=== PATIENT | male | born 1960 | race American Indian/Alaskan Native ===

== ENCOUNTER 2020-01-04 12:07 | Emergency (ER) | payer SELFPAY ==
[2020-01-04 12:25] VITALS: BP 139/83
[2020-01-04] MEDS ORDERED: LIDOCAINE 2%/EPINEPHRINE 1:200,000 VIAL (20 ML) INFILTRATI ONE (12:37)
[2020-01-04] MEDS ORDERED: HYDROcodone/ACETAMINOPHEN 10-325MG TAB PO ONE (12:37)
--- NOTE | 2020-01-04 12:46 | Emergency Department Report ---
ED Laceration [facility] - HPI Chief Complaint: Wound/Laceration Stated Complaint: LEFT LEG CUT Time Seen by Provider: 01/04/20 12:30 Occurred When: Today Location: Lower Extremity Severity: moderate Tetanus Status: Not up to Date Laceration Symptoms: Yes Pain, No Foreign Body Sensation, No Numbness, No Weakness ED Review of Systems ROS: Stated complaint: LEFT LEG CUT Other details as noted in HPI Constitutional: denies: chills, fever Eyes: denies: eye pain, eye discharge, vision change ENT: denies: ear pain, throat pain Respiratory: denies: cough, shortness of breath, wheezing Cardiovascular: denies: chest pain, palpitations Endocrine: no symptoms reported Gastrointestinal: denies: abdominal pain, nausea, diarrhea Genitourinary: denies: urgency, dysuria Musculoskeletal: denies: back pain, joint swelling, arthralgia Skin: denies: rash, lesions Neurological: denies: headache, weakness, paresthesias Psychiatric: denies: anxiety, depression Hematological/Lymphatic: denies: easy bleeding, easy bruising ED Past Medical Hx - Past Medical History Previous Medical History?: Yes Hx Hypertension: Yes Hx Heart Attack/AMI: Yes (2011) Additional medical history: PLAVIX - Surgical History Past Surgical History?: Yes Hx Coronary Stent: Yes - Social History Smoking Status: Never Smoker Substance Use Type: None - Medications Home Medications: Home Medications Medication Instructions Recorded Confirmed Last Taken Type Acetaminophen/Codeine [Tylenol 1 tab PO Q6H PRN #10 tab 10/24/14 Unknown Rx /Codeine # 3 tab] Cyclobenzaprine [Flexeril 10 MG 10 mg PO BID PRN #20 tablet 10/24/14 Unknown Rx TAB] Ibuprofen [Motrin 400 MG tab] 400 mg PO Q8H PRN #30 tablet 10/24/14 Unknown Rx Acetaminophen/Codeine [Tylenol 1 tab PO Q6H PRN #12 tab 01/04/20 Unknown Rx /Codeine # 3 tab] Sulfamethoxazole/Trimethoprim 1 each PO BID #14 tablet 01/04/20 Unknown Rx [Bactrim DS TAB] Laceration Physical Exam - Exam General: Vital signs noted. No distress. Alert and acting appropriately. Wound Length (cm): 5 Laceration Location: Lower Extremity (left) Full Body Front + Back: 1 - 4-5 cm lac Laceration Exam: Yes Normal Distal CMS, No Foreign Body, No Exposed Tendon, Vessel, or Nerve, No Tendon Injury ED Course Vital Signs 01/04/20 12:22 Temperature 98.4 F Pulse Rate 68 Respiratory 18 Rate Blood Pressure 139/83 O2 Sat by Pulse 100 Oximetry - Reevaluation(s) Reevaluation #1: 01/04/20 12:46 Patient is speaking in full sentences with no signs of distress noted. - Laceration /Wound Repair Left Leg Wound Location: lower extremity (left) Wound Length (cm): 5 Wound's Depth, Shape: irregular Wound Explored: clean Irrigated w/ Saline (ccs): 40 Betadine Prep?: Yes Anesthesia: Lidocaine w/ Epi Volume Anesthetic (ccs): 6 (2% lidocaine w/ 1:200,000) Wound Repaired With: sutures Suture Size/Type: 3:0, proline Number of Sutures: 7 Layer Closure?: Yes Deep Layer Suture Size/Type: 3:0 (Vicryl) Number Deep Layer Sutures: 3 Sterile Dressing Applied?: Yes Progress: Under sterile field, I used Betadine to clean the area. I then used 40 mL of normal saline to flush the area. I then used 2% lidocaine with epi 1-200,000 and injected 6 mL to the wound. I then used a 3-0 Vicryl to close the deeper dermis with total of 3 stitches placed. I then used a 3-0 Prolene to suture the laceration. Number of stitches 7. I then applied a sterile 4 x 4 with tape. Minimal bleeding noted but is under control. Patient tolerated procedure well with no signs of distress. ED Medical Decision Making - Medical Decision Making This is a 59-year-old male that presents with laceration. Patient is stable and was examined by me. The laceration suturing has been performed and has been performed and patient tolerated well. A sterile dressing has been applied. Patient was educated on proper wound care. Patient is discharged with Bactrim and Tylenol with codeine and was instructed not to operate any machinery while taking Tylenol with codeine due to drowsiness. Patient was instructed to return in 10 days for suture removal. Patient was instructed to refer to Follow-up with a primary care doctor in 3-5 days or if symptoms worsen and continue return to emergency room as soon as possible. At time of discharge, the patient does not seem toxic or ill in appearance. No acute signs of distress noted. Patient agrees to discharge treatment plan of care. No further questions noted by the patient. Critical care attestation.: If time is entered above; I have spent that time in minutes in the direct care of this critically ill patient, excluding procedure time. ED Disposition Clinical Impression: Laceration Disposition: DC-01 TO HOME OR SELFCARE Is pt being admited?: No Does the pt Need Aspirin: No Condition: Stable Instructions: Suture Care (ED), Laceration (ED), Acetaminophen/Codeine (By mouth) Additional Instructions: Follow-up with a primary care doctor in 3-5 days or if symptoms worsen and continue return to emergency room as soon as possible. Do not operate any machinery while taking Tylenol with codeine as this may cause drowsiness. Return in 10 days for possible suture removal. Prescriptions: Sulfamethoxazole/Trimethoprim [Bactrim DS TAB] 1 each PO BID #14 tablet Acetaminophen/Codeine [Tylenol /Codeine # 3 tab] 1 tab PO Q6H PRN #12 tab PRN Reason: Pain , Severe (7-10) Referrals: DAYANNA SANDOVAL MD [Primary Care Provider] - 3-5 Days PRIMARY CAREMD [Referring] - 3-5 Days NILSA MARCIAL MD [Staff Physician] - 3-5 Days Forms: Work/School Release Form(ED)
[2020-01-04] MEDS ORDERED: TETANUS,DIPHTHERIA TOXOID ADULT 0.5 ML INJ IM SCH (13:00)
--- NOTE | 2020-01-04 13:18 | XRay Report ---
LEFT TIBIA AND FIBULA 2 VIEWS INDICATION / CLINICAL INFORMATION: DEEP LAC FROM CHAIN SAW WITH NUMBNESS TO TOES COMPARISON: None available. FINDINGS: BONES / JOINT(S): No acute fracture or subluxation. Partially imaged moderate/large calcaneal spur. SOFT TISSUES: Soft tissue injury mid calf anteriorly. ADDITIONAL FINDINGS: None. Signer Name: Luke Tse MD Signed: 01/04/2020 1:13 PM Workstation Name: [id number]
== END 2020-01-04 16:00 | disposition home or self-care (01) ==
LOC: ED 12:07
DX: S81.812A Laceration without foreign body, left lower leg, initial encounter (principal); I10 Essential (primary) hypertension; I25.2 Old myocardial infarction; W45.8XXA Other foreign body or object entering through skin, initial encounter; Y93.89 Activity, other specified; Y92.89 Other specified places as the place of occurrence of the external cause; Y99.8 Other external cause status
CPT/HCPCS: 90471; 90714

== ENCOUNTER 2022-01-01 16:34 | Emergency (ER) | payer MEDICAID ==
[2022-01-02 01:21] LABS: BUN/Creatinine Ratio 25; Blood Urea Nitrogen 20 mg/dL (9-20); Calcium 8.9 mg/dL (8.4-10.2); Hemolysis Index 20
--- NOTE | 2022-01-02 01:45 | Emergency Department Report ---
ED General Adult HPI - General Chief complaint: Extremity Injury, Lower Stated complaint: PAIN/LEG/BACK/ARM Time Seen by Provider: 01/02/22 00:10 Source: patient Mode of arrival: Ambulatory Limitations: No Limitations - History of Present Illness Initial comments: 61-year-old Megamilbedoce male pulm complaining of a 1+ year history of waxing and waning progressive worsening aches to his hands hips shoulders elbows knees and feet off and off. States has been having some muscle spasms and cramps over the last few weeks as well with minimal exertion. Reports no nausea, vomiting loss of bowel bladder, saddle paresthesia. -: Gradual Severity scale (0 -10): 7 - Related Data Home Medications Medication Instructions Recorded Confirmed Last Taken Plavix 75 mg PO DAILY 01/13/20 01/13/20 01/13/20 Omeprazole 20 mg PO DAILY 01/14/20 01/14/20 01/13/20 lisinopriL [Zestril TAB] 20 mg PO DAILY 01/14/20 01/14/20 01/13/20 Previous Rx's Medication Instructions Recorded Last Taken Type Acetaminophen/Codeine [Tylenol 1 tab PO Q6H PRN #10 tab 10/24/14 Unknown Rx /Codeine # 3 tab] Cyclobenzaprine [Flexeril 10 MG 10 mg PO BID PRN #20 tablet 10/24/14 Unknown Rx TAB] Ibuprofen [Motrin 400 MG tab] 400 mg PO Q8H PRN #30 tablet 10/24/14 Unknown Rx Acetaminophen/Codeine [Tylenol 1 tab PO Q6H PRN #12 tab 01/04/20 Unknown Rx /Codeine # 3 tab] Sulfamethoxazole/Trimethoprim 1 each PO BID #14 tablet 01/04/20 Unknown Rx [Bactrim DS TAB] Clindamycin [Clindamycin CAP] 300 mg PO Q6H #28 capsule 01/13/20 Unknown Rx Meloxicam [Mobic] 7.5 mg PO QDAY #14 tablet 01/02/22 Unknown Rx Allergies Allergy/AdvReac Type Severity Reaction Status Date / Time No Known Allergies Allergy Unverified 09/29/21 04:02 ED Review of Systems ROS: Stated complaint: PAIN/LEG/BACK/ARM Other details as noted in HPI Comment: All other systems reviewed and negative ED Past Medical Hx - Past Medical History Hx Hypertension: Yes Hx Heart Attack/AMI: Yes (bypass surgery) Hx Congestive Heart Failure: Yes Hx Diabetes: No Additional medical history: Pt taking Plavix - Surgical History Hx Coronary Stent: Yes Additional Surgical History: leg surgery - Social History Smoking Status: Never Smoker - Medications Home Medications: Home Medications Medication Instructions Recorded Confirmed Last Taken Type Acetaminophen/Codeine [Tylenol 1 tab PO Q6H PRN #10 tab 10/24/14 Unknown Rx /Codeine # 3 tab] Cyclobenzaprine [Flexeril 10 MG 10 mg PO BID PRN #20 tablet 10/24/14 Unknown Rx TAB] Ibuprofen [Motrin 400 MG tab] 400 mg PO Q8H PRN #30 tablet 10/24/14 Unknown Rx Acetaminophen/Codeine [Tylenol 1 tab PO Q6H PRN #12 tab 01/04/20 Unknown Rx /Codeine # 3 tab] Sulfamethoxazole/Trimethoprim 1 each PO BID #14 tablet 01/04/20 Unknown Rx [Bactrim DS TAB] Clindamycin [Clindamycin CAP] 300 mg PO Q6H #28 capsule 01/13/20 Unknown Rx Plavix 75 mg PO DAILY 01/13/20 01/13/20 01/13/20 History Omeprazole 20 mg PO DAILY 01/14/20 01/14/20 01/13/20 History lisinopriL [Zestril TAB] 20 mg PO DAILY 01/14/20 01/14/20 01/13/20 History Meloxicam [Mobic] 7.5 mg PO QDAY #14 tablet 01/02/22 Unknown Rx ED Physical Exam - General Limitations: No Limitations General appearance: alert, in no apparent distress - Head Head exam: Present: atraumatic, normocephalic - Eye Eye exam: Present: normal appearance, PERRL, EOMI, conjunctival injection Pupils: Present: normal accommodation - ENT ENT exam: Present: normal exam, mucous membranes moist, TM's normal bilaterally - Neck Neck exam: Present: normal inspection, full ROM - Respiratory Respiratory exam: Present: normal lung sounds bilaterally. Absent: respiratory distress, wheezes, rales, chest wall tenderness, accessory muscle use, decreased breath sounds - Cardiovascular Cardiovascular Exam: Present: regular rate, normal rhythm. Absent: systolic murmur, diastolic murmur, rubs, gallop - GI/Abdominal GI/Abdominal exam: Present: soft, normal bowel sounds - Rectal Rectal exam: Present: deferred - Extremities Exam Extremities exam: Present: normal inspection - Back Exam Back exam: Present: normal inspection - Neurological Exam Neurological exam: Present: alert, oriented X3 - Psychiatric Psychiatric exam: Present: normal affect, normal mood - Skin Skin exam: Present: warm, dry, intact, normal color. Absent: rash ED Course Vital Signs 01/01/22 01/01/22 17:12 17:16 Temperature 98.3 F Pulse Rate 69 Respiratory 12 Rate Blood Pressure 151/86 [Left] O2 Sat by Pulse 98 Oximetry ED Medical Decision Making - Lab Data Result diagrams: 01/02/22 00:33 Critical care attestation.: If time is entered above; I have spent that time in minutes in the direct care of this critically ill patient, excluding procedure time. ED Disposition Clinical Impression: Polyarthralgia Disposition: 01 HOME / SELF CARE / HOMELESS Is pt being admited?: No Does the pt Need Aspirin: No Condition: Stable Instructions: Joint Pain, [id number], Joint Pain Prescriptions: Meloxicam [Mobic] 7.5 mg PO QDAY #14 tablet Ref[facility]: [facility] [Provider Group] - 3-5 Days ERUM MERCER MD [Staff Physician] - 3-5 Days
[2022-01-02 02:18] VITALS: BP 157/89
== END 2022-01-02 02:18 | disposition home or self-care (01) ==
LOC: ED 16:34
DX: M25.512 Pain in left shoulder (principal); M25.511 Pain in right shoulder; M25.552 Pain in left hip; M25.551 Pain in right hip; M25.542 Pain in joints of left hand; M25.541 Pain in joints of right hand; M25.522 Pain in left elbow; M25.521 Pain in right elbow; M25.572 Pain in left ankle and joints of left foot; M25.571 Pain in right ankle and joints of right foot; I11.0 Hypertensive heart disease with heart failure; I50.9 Heart failure, unspecified; Z98.890 Other specified postprocedural states
CPT/HCPCS: 36415; 80048; 99283